=== PATIENT | female | born 1985 | race Asian ===

== ENCOUNTER 2018-04-13 09:23 | Inpatient (IN) | payer BC ==
[2018-04-11 13:29] LABS: BILIRUBIN,URINE NEGATIVE (NEGATIVE); BLOOD, URINE NEGATIVE (NEGATIVE); CLARITY/URINE CLEAR (CLEAR); COLOR,URINE YELLOW (YELLOW); GLUCOSE,URINE NEGATIVE (NEGATIVE); HEMATOCRIT 37.9 % (36-48); HEMOGLOBIN 12.3 g/dL (12.0-16.0); KETONES,URINE NEGATIVE (NEGATIVE); LEUKOCYTE ESTERASE ,URINE NEGATIVE (NEGATIVE); MEAN CORPUSCULAR HEMOGLOBIN 29 pg (27-31); MEAN CORPUSCULAR HGB CONC 32 % (32-36); MEAN CORPUSCULAR VOLUME 88 fL (79.0-98.0); NITRITE, URINE NEGATIVE (NEGATIVE); PH,URINE 7.5 (5.0-8.0); PLATELET COUNT (AUTO) 213 K/uL (130-430); PROTEIN URINE NEGATIVE (NEGATIVE); RED BLOOD CELL COUNT(AUTO) 4.31 MIL/uL (4.2-6.2); RED CELL DISTRIBUTION WIDTH 12.4 % (9.0-15.0); UROBILINOGEN,URINE 0.2 (0.2-1.0); WHITE BLOOD COUNT (AUTO) 7.6 K/uL (4.8-10.8)
[2018-04-11 14:16] LABS: BASOPHILS % (MANUAL) 0 % (0-2); EOSINOPHILS % (MANUAL) 0 % (0-7); LYMPHOCYTES % (MANUAL) 22 % (20-46); MONOCYTES % (MANUAL) 5 % (0-11)
[~2018-04-13] VITALS: Ht 152.4 cm; Wt 69.4 kg
[2018-04-13 10:23] VITALS: BP_SYST 105
[2018-04-13] MEDS ORDERED: CEFAZOLIN 2 GM IVPB PREMIX 50 ML IV ONE (11:45)
[2018-04-13] MEDS ORDERED: MORPHINE SULFATE 10MG/10ML PF AMP SP SCH (13:00)
[2018-04-13] MEDS ORDERED: NALBUPHINE HCL 10 MG/ML AMP IVP PRN (13:00)
[2018-04-13] MEDS ORDERED: KETOROLAC TROMETHAMINE 60 MG/2 ML VIAL IM PRN (13:00)
[2018-04-13] MEDS ORDERED: ONDANSETRON HCL 4 MG/2 ML VIAL IVP PRN (13:00)
[2018-04-13] MEDS ORDERED: fentaNYL CITRATE/PF 100 MCG/2 ML AMP IVP PRN ×2 (13:00)
[2018-04-13] MEDS ORDERED: DIPHENHYDRAMINE INJ 50 MG/ML VIAL IVP PRN (13:00)
[2018-04-13] MEDS ORDERED: NALOXONE HCL 0.4 MG/ML AMP (NARCAN) IVP PRN ×2 (13:00)
[2018-04-13] MEDS ORDERED: TRIAMCINOLONE ACETONIDE 40 MG/ML IM ONE (13:20)
[2018-04-13 13:45] VITALS: BP_SYST 101
[2018-04-13] MEDS ORDERED: METOCLOPRAMIDE HCL 10 MG/2 ML VIAL ONE (13:45)
[2018-04-13] MEDS ORDERED: LR 1,000 ML IV.SOLN IV ONE (13:45)
[2018-04-13] MEDS ORDERED: MORPHINE SULFATE 10MG/10ML PF AMP ONE (13:45)
[2018-04-13] MEDS ORDERED: TRIAMCINOLONE ACETONIDE 40 MG/ML ONE (13:45)
[2018-04-13] MEDS ORDERED: WATER FOR IRRIGATION,STERILE 1,000 ML IRRIG.SOLN IR ONE (13:45)
[2018-04-13] MEDS ORDERED: MIDAZOLAM HCL 5 MG/ML VIAL (VERSED) IV ONE (13:45)
[2018-04-13] MEDS ORDERED: CEFAZOLIN 1 GM IVPB PREMIX 50 ML IV ONE (17:54)
[2018-04-13] MEDS ORDERED: OXYTOCIN/0.9 % SODIUM CHLORIDE 1,000 ML IV ONE ×2 (20:00→20:07)
[2018-04-13] MEDS ORDERED: ceFAZolin SODIUM 1 GM VIAL ONE (20:58)
[2018-04-13] MEDS: ceFAZolin SODIUM 1 GM in D5W 50 ML IV SCH (23:50)
[2018-04-14] MEDS ORDERED: ceFAZolin SODIUM 1 GM VIAL ONE (05:07)
[2018-04-14] MEDS: ceFAZolin SODIUM 1 GM in D5W 50 ML IV SCH (05:55)
[2018-04-14] MEDS ORDERED: OXYTOCIN/0.9 % SODIUM CHLORIDE 1,000 ML IV ONE (11:56)
[2018-04-14] MEDS ORDERED: LR 1,000 ML IV SCH (11:56)
[2018-04-14] MEDS ORDERED: LANOLIN 7 GM OINT. TP PRN (12:00)
[2018-04-14] MEDS ORDERED: CEFAZOLIN 1 GM IVPB PREMIX 50 ML IV SCH (12:00)
[2018-04-14] MEDS ORDERED: ANUSOL 1 EA SUPP.RECT (PREPARATION H) RC PRN (12:00)
[2018-04-14] MEDS ORDERED: SENNOSIDES/DOCUSATE SODIUM 1 TAB TABLET(SENOKOT-S) PO PRN (12:00)
[2018-04-14] MEDS ORDERED: BISACODYL 10 MG/SUPPOSITORY RC PRN (12:00)
[2018-04-14] MEDS: IBUPROFEN 600 MG TABLET PO SCH (12:30)
[2018-04-14] MEDS ORDERED: IBUPROFEN 600 MG TABLET ONE (12:35)
[2018-04-14 13:43] LABS: BASOPHILS % (AUTO) 0.3 % (0.0-2.0); EOSINOPHILS % (AUTO) 0.2 % (0.0-4.0); HEMATOCRIT 34.5 % (36-48); HEMOGLOBIN 11.8 g/dL (12.0-16.0); LYMPHOCYTES # (AUTO) 1.2 K/uL (1.0-5.5); LYMPHOCYTES % (AUTO) 10.3 % (20.5-51.5); MEAN CORPUSCULAR HEMOGLOBIN 30 pg (27-31); MEAN CORPUSCULAR HGB CONC 34 % (32-36); MEAN CORPUSCULAR VOLUME 87 fL (79.0-98.0); MONOCYTES # (AUTO) 0.4 K/uL (0.0-1.0); MONOCYTES % (AUTO) 3.6 % (1.7-9.3); NEUTROPHILS # (AUTO) 9.8 K/uL (1.8-7.7); NEUTROPHILS % (AUTO) 85.6 % (40.0-70.0); PLATELET COUNT (AUTO) 212 K/uL (130-430); RED BLOOD CELL COUNT(AUTO) 3.95 MIL/uL (4.2-6.2); RED CELL DISTRIBUTION WIDTH 12.5 % (9.0-15.0); WHITE BLOOD COUNT (AUTO) 11.4 K/uL (4.8-10.8)
[2018-04-14] MEDS: SIMETHICONE 80 MG TAB.CHEW PO PRN (17:54)
[2018-04-14] MEDS: DOCUSATE SODIUM 100 MG CAPSULE PO PRN (17:54)
[2018-04-14] MEDS ORDERED: TEMAZEPAM 15 MG CAPSULE PO PRN (21:00)
[2018-04-15] MEDS: SIMETHICONE 80 MG TAB.CHEW PO PRN (00:02)
[2018-04-15] MEDS: DOCUSATE SODIUM 100 MG CAPSULE PO PRN (00:02)
[2018-04-15] MEDS: IBUPROFEN 600 MG TABLET PO SCH ×4 (06:00→13:09)
== END 2018-04-15 15:05 | disposition home or self-care (01) | DRG 785 ==
LOC: SPU 09:23
PROVIDERS: ADMIT Obstetrics & Gynecology; ATTEND Obstetrics & Gynecology
PROC: 0UB70ZZ Excision of Bilateral Fallopian Tubes, Open Approach (ICD-10-PCS; 2018-04-13)
PROC: 10D00Z1 Extraction of Products of Conception, Low, Open Approach (ICD-10-PCS; principal; 2018-04-13 12:00)
DX: O34.211 Maternal care for low transverse scar from previous cesarean delivery (principal); Z30.2 Encounter for sterilization; Z37.0 Single live birth; Z3A.39 39 weeks gestation of pregnancy
CPT/HCPCS: 36415; 81003; 85007; 85025; 85027; 86886; 86900; 86901; 88302; J0690; J2250; J2274; J2590; J2765; J3301; J7060; J7120